=== PATIENT | female | born 1980 | race Hispanic/Latino ===

== ENCOUNTER 2018-12-01 20:49 | Emergency (ER) | payer OTHER ==
[2018-12-01] MEDS ORDERED: NA BORATE/BORIC AC/H2O/NACL 120 ML OPHTH IRRIG SOLN ONE (21:12)
[2018-12-01] MEDS ORDERED: TETRACAINE HCL 0.5% 4 ML OPHTH SOLN ONE (21:12)
[2018-12-01] MEDS ORDERED: FLUORESCEIN SODIUM 1 STRIP STRIP ONE (21:12)
[2018-12-01] MEDS ORDERED: ERYTHROMYCIN BASE 0.5% OPHTH OINT 1 GM TUBE ONE (21:51)
[2018-12-01] MEDS ORDERED: IBUPROFEN 400 MG TABLET ONE (21:52)
== END 2018-12-01 21:58 | disposition home or self-care (01) ==
LOC: EDH 20:49
DX: H10.9 Unspecified conjunctivitis (principal); Z98.51 Tubal ligation status; Z98.890 Other specified postprocedural states